=== PATIENT | male | born 1960 | race Caucasian/White ===

== ENCOUNTER → 2018-01-15 | Outpatient (CLI) | payer OTHER ==
[~2018-01-15] MED LIST: ASPIRIN325 PO; FENOFIBRATE160 MG PO; LIPITOR80 MG PO; METFORMIN HCL500 MG PO; PLAVIX 75 MG TA75 M1 PO; ZETIA10 MG PO
--- NOTE | ~2018-01-15 | EKG ---
[address] [address] ELECTROCARDIOGRAM REPORT Name: NOHELIA WILL Room #: [facility]#: [id number] Admission: 01/15/18 Attend Phys: Su Martinez MD Discharge: Date of : 60 Report #: [id number] THIS REPORT FOR: //name// [facility] Test Date: 2018-01-15 Test Time: 06:55:05 Pat Name: NOHELIA WILL Department: Room: Gender: Marketing Lead: KAYDEN : 1960 Requested By: Su Martinez Order Number: [id number] MD: Haim Rosas Measurements Intervals [place] Rate: 84 P: 42 MS: 170 QRS: 10 QRSD: 90 T: 74 QT: 350 QTc: 414 Interpretive Statements Sinus rhythm Nonspecific T wave abnormalities Compared to ECG 02/03/2013 08:14:31 Electronically Signed On 01-15-2018 10:07:21 CDT by Haim Rosas [email or web address] <ELECTRONICALLY SIGNED> By: Haim Rosas MD 01/15/18 [id number] Haim Rosas MD /MATI
== END | disposition home or self-care (01) ==
LOC: LITH 06:31
DX: N20.0 Calculus of kidney (principal); Z53.9 Procedure and treatment not carried out, unspecified reason; Z79.899 Other long term (current) drug therapy; Z79.82 Long term (current) use of aspirin
CPT/HCPCS: 50010

== ENCOUNTER 2018-12-21 11:33 | Emergency (ER) | payer OTHER ==
[~2018-12-21] VITALS: Ht 182.9 cm; Wt 99.8 kg
[2018-12-21 12:27] LABS: ABSOLUTE NEUTROPHILS 13.1 thou/uL (1.4-8.2); BASOPHILS 0.6 % (0.0-2.0); EOSINOPHILS 0.1 % (0.0-3.0); HEMATOCRIT 40.5 % (42.0-52.0); HEMOGLOBIN 13.5 gm/dL (14.0-18.0); LYMPHOCYTES 6.6 % (24.0-44.0); MCH 29.2 pg (26.0-34.0); MCHC 33.3 g/dL (28.0-37.0); MCV 87.9 fL (80.0-100.0); MONOCYTES 5.1 % (1.0-8.0); PLATELET COUNT 254 thou/uL (150-400); POLYS 87.6 % (36.0-66.0); RBC 4.61 mil/uL (4.50-6.00); RDW 13.4 % (10.5-14.5)
[2018-12-21 12:32] LABS: CALCIUM 9.1 mg/dL (8.5-10.1); CREATININE 2.5 mg/dL (0.7-1.3); POTASSIUM 4.5 mmol/L (3.5-5.1)
[2018-12-21 13:30] LABS: URINE BILIRUBIN NEGATIVE (Negative); URINE BLOOD 3+ (Negative); URINE CLARITY CLEAR; URINE COLOR YELLOW; URINE GLUCOSE-RANDOM* 1+ (Negative); URINE KETONES NEGATIVE (Negative); URINE LEUKOCYTES-REFLEX NEGATIVE (Negative); URINE NITRITE-REFLEX NEGATIVE (Negative); URINE PROTEIN (DIPSTICK) TRACE (Negative); URINE SPECIFIC GRAVITY 1.025 (1.005-1.035); URINE UROBILINOGEN 0.2 E.U./dl (0.2-1.0)
[2018-12-21 13:38] LABS: BACTERIA-REFLEX 1-9 Few /HPF (None Seen); CASTS None Seen /LPF (None Seen); CRYSTALS None Seen /LPF (None Seen); SQUAMOUS None Seen /LPF (0-3); URINE RBC >20 Many /HPF (0-2); URINE WBC-REFLEX None Seen /HPF (0-5)
[2018-12-21 14:55] VITALS: BP 160/76
== END 2018-12-21 18:48 | disposition short-term general hospital (02) ==
LOC: ER 11:33
PROVIDERS: Emergency Medicine
DX: N20.1 Calculus of ureter (principal); R11.2 Nausea with vomiting, unspecified; E10.9 Type 1 diabetes mellitus without complications; I10 Essential (primary) hypertension; I25.10 Atherosclerotic heart disease of native coronary artery without angina pectoris; Z88.7 Allergy status to serum and vaccine